=== PATIENT | female | born 1950 | race Caucasian/White ===

== ENCOUNTER 2017-11-08 09:00 | Emergency (ER) | payer SELFPAY ==
[~2017-11-08] VITALS: Ht 152.4 cm; Wt 61.2 kg
[~2017-11-08 09:00] MED LIST: ENAL10 PO; FLUSAL2505 INH; Flomax0.4 MG PO; Flonase 0.05% N16 GM; HYDR1TAB94 PO; LEVSOD75 PO; Zofran Odt8 MG SL
[2017-11-08 10:40] LABS: BASOPHILS ABSOLUTE AUTO 0.04 K/mm3 (0.00-0.23); BASOPHILS PERCENT AUTO 0 % (0-2); EOSINOPHILS PERCENT AUTO 1 % (0-6); Hematocrit 39.9 % (33.0-51.0); Hemoglobin 13.4 g/dL (11.5-16.0); IMMATURE GRAN ABSOLUTE AUTO 0.04 K/mm3 (0.00-0.10); IMMATURE GRAN PERCENT AUTO 0 % (0-1); LYMPHOCYTES ABSOLUTE AUTO 1.47 K/mm3 (0.84-5.20); LYMPHOCYTES PERCENT AUTO 13 % (21-46); MONOCYTES ABSOLUTE AUTO 0.69 K/mm3 (0.16-1.47); MONOCYTES PERCENT AUTO 6 % (4-13); Mean Corpuscular HGB 29.1 pg (26.0-34.0); Mean Corpuscular HGB Conc 33.6 g/dL (31.5-36.5); Mean Corpuscular Volume 87 fL (80-100); Mean Platelet Volume 9.3 fL (9.1-12.4); NEUTROPHILS PERCENT AUTO 79 % (41-73); Platelet Count 292 K/mm3 (150-400); RDW Coefficient Variation 12.4 % (11.7-14.2); RDW Standard Deviation 39.3 fL (35.1-46.3); White Blood Cell Count 11.24 K/mm3 (4.00-11.30)
[2017-11-08 10:58] LABS: Alanine Aminotransfer (ALT/SGP 32 U/L (12-78); Albumin, Blood 3.6 g/dL (3.4-5.0); Albumin/Globulin Ratio 0.9 (0.8-1.8); Alk Phos 77 U/L (50-136); Anion Gap 7 mmol/L (6-16); Aspartate Aminotrans (AST/SGOT 24 U/L (12-37); Bilirubin, Total 0.9 mg/dL (0.1-1.0); Blood Urea Nitrogen 10 mg/dL (8-24); Bun/Creatinine Ratio 15.9 (12.0-20.0); CO2, Blood 25 mmol/L (21-32); Calcium, Blood 8.8 mg/dL (8.5-10.1); Chloride, Blood 106 mmol/L (98-108); Creatinine, Blood 0.63 mg/dL (0.40-1.00); Globulin, Blood 4.1 g/dL (2.2-4.0); Glomerular Filtration Rate >60 (60-); Glucose, Blood 112 mg/dL (70-99); Potassium, Blood 3.5 mmol/L (3.5-5.5); Sodium, Blood 138 mmol/L (136-145); Total Protein, Blood 7.7 g/dL (6.4-8.2)
== END 2017-11-08 12:54 | disposition home or self-care (01) ==
LOC: ER 09:00
PROVIDERS: Emergency Medicine
DX: K52.9 Noninfective gastroenteritis and colitis, unspecified (principal); Z88.5 Allergy status to narcotic agent; Z88.8 Allergy status to other drugs, medicaments and biological substances; Z79.899 Other long term (current) drug therapy; I10 Essential (primary) hypertension; J45.909 Unspecified asthma, uncomplicated
CPT/HCPCS: 36415; 74177; 80053; 83690; 85025; 93005; 93010; 96361; 96374; 99284; J2405; J7030; Q9967

== ENCOUNTER 2022-06-15 18:32 | Emergency (ER) | payer OTHER ==
[~2022-06-15] VITALS: Ht 152.4 cm; Wt 63.5 kg
[2022-06-15 19:15] LABS: BASOPHILS ABSOLUTE AUTO 0.07 K/mm3 (0.00-0.23); BASOPHILS PERCENT AUTO 0 % (0-2); EOSINOPHILS ABSOLUTE AUTO 0.21 K/mm3 (0.00-0.68); EOSINOPHILS PERCENT AUTO 1 % (0-6); Hematocrit 40.4 % (33.0-51.0); Hemoglobin 13.7 g/dL (11.5-16.0); IMMATURE GRAN ABSOLUTE AUTO 0.09 K/mm3 (0.00-0.10); IMMATURE GRAN PERCENT AUTO 1 % (0-1); LYMPHOCYTES ABSOLUTE AUTO 1.61 K/mm3 (0.84-5.20); LYMPHOCYTES PERCENT AUTO 9 % (21-46); MONOCYTES ABSOLUTE AUTO 1.13 K/mm3 (0.16-1.47); MONOCYTES PERCENT AUTO 6 % (4-13); Mean Corpuscular HGB 30.1 pg (26.0-34.0); Mean Corpuscular HGB Conc 33.9 g/dL (31.5-36.5); Mean Corpuscular Volume 89 fL (80-100); Mean Platelet Volume 8.9 fL (9.1-12.4); NEUTROPHILS ABSOLUTE AUTO 14.46 K/mm3 (1.96-9.15); NEUTROPHILS PERCENT AUTO 82 % (41-73); Platelet Count 321 K/mm3 (150-400); RDW Coefficient Variation 12.4 % (11.7-14.2); RDW Standard Deviation 40.7 fL (35.1-46.3); Red Blood Cell Count 4.55 M/mm3 (3.80-5.20); White Blood Cell Count 17.57 K/mm3 (4.00-11.30)
[2022-06-15 19:57] LABS: Albumin, Blood 3.8 g/dL (3.4-5.0); Bilirubin, Total 0.3 mg/dL (0.1-1.0); Bun/Creatinine Ratio 19.6 (12.0-20.0); Calcium, Blood 9.3 mg/dL (8.5-10.1); Creatinine, Blood 0.72 mg/dL (0.40-1.00); Globulin, Blood 3.8 g/dL (2.2-4.0); Potassium, Blood 3.5 mmol/L (3.5-5.5); Total Protein, Blood 7.6 g/dL (6.4-8.2)
== END 2022-06-15 20:43 | disposition home or self-care (01) ==
LOC: ER 18:32
PROVIDERS: Emergency Medicine
DX: J45.901 Unspecified asthma with (acute) exacerbation (principal); I10 Essential (primary) hypertension; Z88.5 Allergy status to narcotic agent; Z88.6 Allergy status to analgesic agent; Z79.899 Other long term (current) drug therapy
CPT/HCPCS: 36415; 80053; 85025; 93005; 93010; A9270

== ENCOUNTER 2023-07-17 18:08 | Inpatient (IN) | payer MEDICARE, OTHER ==
[~2023-07-17] VITALS: Ht 152.4 cm; Wt 54.4 kg
[2023-07-17 21:22] LABS: BASOPHILS ABSOLUTE AUTO 0.05 K/mm3 (0.00-0.23); BASOPHILS PERCENT AUTO 0 % (0-2); EOSINOPHILS ABSOLUTE AUTO 0.11 K/mm3 (0.00-0.68); EOSINOPHILS PERCENT AUTO 1 % (0-6); Hematocrit 36.1 % (33.0-51.0); Hemoglobin 12.3 g/dL (11.5-16.0); IMMATURE GRAN ABSOLUTE AUTO 0.08 K/mm3 (0.00-0.10); IMMATURE GRAN PERCENT AUTO 1 % (0-1); LYMPHOCYTES PERCENT AUTO 7 % (21-46); MONOCYTES ABSOLUTE AUTO 0.63 K/mm3 (0.16-1.47); MONOCYTES PERCENT AUTO 5 % (4-13); Mean Corpuscular HGB Conc 34.1 g/dL (31.5-36.5); Mean Corpuscular Volume 88 fL (80-100); Mean Platelet Volume 8.9 fL (9.1-12.4); NEUTROPHILS PERCENT AUTO 86 % (41-73); Platelet Count 261 K/mm3 (150-400); RDW Coefficient Variation 12.3 % (11.7-14.2); RDW Standard Deviation 39.8 fL (35.1-46.3); White Blood Cell Count 13.47 K/mm3 (4.00-11.30)
[2023-07-17 21:38] LABS: International Normalized Ratio 1.03; Prothrombin Time Results 10.8 Sec (9.7-11.5)
[2023-07-17 21:40] LABS: Bun/Creatinine Ratio 18.3 (12.0-20.0); Calcium, Blood 8.7 mg/dL (8.5-10.1); Creatinine, Blood 0.66 mg/dL (0.40-1.00); Potassium, Blood 3.7 mmol/L (3.5-5.5)
[2023-07-18 00:40] VITALS: BP 161/95
[2023-07-18] MEDS ORDERED: FLUT1DIS2 INH (00:42)
--- NOTE | 2023-07-18 01:22 | NUR ---
ARRIVAL PT NEW ADMIT FROM ER. ARRIVED IN NO DISTRESS, A/OX4, ON RA. RLE IS SHORTENED, PEDAL PULSE IS STRONG AND PT REPORTS FULL SENSATION IN EXTREMITY. HASTINGS IN PLACE FROM ER. PT GIVEN PAIN MEDICATION AND ORAL SWABS FOR COMFORT. PLAN FOR SURGERY TOMORROW.
[2023-07-18 05:20] VITALS: BP 132/74
--- NOTE | 2023-07-18 05:34 | NUR ---
SHIFT SUMMARY VSS. RLE REMAINS SHORTENED. SENSATION AND CIRCULATION REMAIN INTACT. PT SLEPT ON AND OFF T/O THE NIGHT. MEDICATED FOR PAIN ONCE. HASTINGS REMAINS PATENT, DARK YELLOW URINE OUTPUT NOTED. IV FLUIDS INFUSING. PT HAS REMAINED NPO T/O THE NIGHT FOR SURGERY TODAY. NO ACUTE EVENTS NOTED
[2023-07-18 06:38] LABS: BASOPHILS ABSOLUTE AUTO 0.04 K/mm3 (0.00-0.23); BASOPHILS PERCENT AUTO 1 % (0-2); EOSINOPHILS ABSOLUTE AUTO 0.02 K/mm3 (0.00-0.68); EOSINOPHILS PERCENT AUTO 0 % (0-6); Hematocrit 33.9 % (33.0-51.0); Hemoglobin 11.4 g/dL (11.5-16.0); IMMATURE GRAN ABSOLUTE AUTO 0.03 K/mm3 (0.00-0.10); IMMATURE GRAN PERCENT AUTO 0 % (0-1); LYMPHOCYTES ABSOLUTE AUTO 1.02 K/mm3 (0.84-5.20); LYMPHOCYTES PERCENT AUTO 12 % (21-46); MONOCYTES ABSOLUTE AUTO 0.59 K/mm3 (0.16-1.47); MONOCYTES PERCENT AUTO 7 % (4-13); Mean Corpuscular HGB Conc 33.6 g/dL (31.5-36.5); Mean Corpuscular Volume 89 fL (80-100); Mean Platelet Volume 9.3 fL (9.1-12.4); NEUTROPHILS ABSOLUTE AUTO 7.18 K/mm3 (1.96-9.15); NEUTROPHILS PERCENT AUTO 81 % (41-73); Platelet Count 241 K/mm3 (150-400); RDW Coefficient Variation 12.5 % (11.7-14.2); RDW Standard Deviation 40.9 fL (35.1-46.3); White Blood Cell Count 8.88 K/mm3 (4.00-11.30)
[2023-07-18 07:21] LABS: Albumin/Globulin Ratio 0.9 (0.8-1.8); Bilirubin, Total 0.7 mg/dL (0.1-1.0); Bun/Creatinine Ratio 21.7 (12.0-20.0); Calcium, Blood 8.3 mg/dL (8.5-10.1); Creatinine, Blood 0.65 mg/dL (0.40-1.00); Globulin, Blood 3.5 g/dL (2.2-4.0); Magnesium, Blood 2.2 mg/dL (1.6-2.4); Potassium, Blood 4.1 mmol/L (3.5-5.5); Thyroid Stimulating Hormone 0.636 uIU/mL (0.360-4.800); Total Protein, Blood 6.5 g/dL (6.4-8.2)
[2023-07-18 07:52] VITALS: BP 132/70
--- NOTE | 2023-07-18 12:03 | NUR ---
SURGERY POST PONED UNTIL TOMORROW DUE TO OR AVAILABILITY. PT GIVEN WATER & BROTH.
--- NOTE | 2023-07-18 14:11 | NUR ---
"Spiritual Care Visit | Pt. requst Pt. is awake in bed when she welcomes my visit. Pt. is pleasant. Facilitate a life review. Pt is unsettled about the delay for her surgery. Listen wiht empathy and a calming presence and seek to normalize the Pt. experience. Pt. displayed evidence of understanding and agreement. Considered matters of kosta and belief. Prayed with Pt. Pt. verbalized gratitude for the spiritual care visit and welcomed this new grad rn to return."
[2023-07-18 15:24] VITALS: BP 134/75
--- NOTE | 2023-07-18 18:06 | NUR ---
SHIFT SUMMARY PT HAS DONE WELL TODAY & KEPT AN UPBEAT ATTITUDE DESPITE SURGERY BEING POST PONED UNTIL TOMORROW. PAIN BETTER CONTROLLED AFTER CHANGES MADE & PT IS VERY HAPPY w/ THAT. PLAN FOR NPO AT [place] & [facility] FOR SURGERY TOMORROW.
[2023-07-18 19:54] VITALS: BP 96/47
[2023-07-18 21:40] VITALS: BP 106/55
[2023-07-19] VITALS (15 sets, daily range): BP systolic 99–184; BP diastolic 45–95
--- NOTE | 2023-07-19 04:58 | NUR ---
SHIFT SUMMARY VSS. PT SLEPT ON AND OFF T/O THE NIGHT. TOLLERATED REPOSITIONING ONCE. MEDICATED FOR PAIN WTIH DILAUDID, OXY, AND TYLENOL. HASTINGS REMAINS IN PLACE, LOW URINE OUTPUT NOTED. IV FLUIDS INFUSING T/O THE NIGHT. PT HAS BEEN NPO SINCE 0000 IN ANTICIPATION FOR SURGERY TODAY.
--- NOTE | 2023-07-19 05:02 | NUR ---
SHIFT SUMMARY POD1 R TKA. SENSATION AND CIRCULATION REMAIN INTACT. DRESSING REMAINS C/D/I. VSS. PT SLEPT ON AND OFF T/O THE NIGHT. AMBULATED TO THE BATHROOM MULTIPLE TIMES TO VOID. TOLLERATING PO INTAKE W/O N/V, NO ACUTE EVENTS NOTED T/O THE NIGHT. PLAN TO WORK WITH PHYSICAL THERAPY AND D/C HOME
--- NOTE | 2023-07-19 14:00 | NUR ---
PT LEFT ROOM TO GO TO O.R.
--- NOTE | 2023-07-19 14:01 | NUR ---
TO DAY SURGERY VIA HOSPITAL BED; IN [facility].
--- NOTE | 2023-07-19 14:13 | NUR ---
PT TO DAY SURGERY WITH 24G IV IN RIGHT HAND
--- NOTE | 2023-07-19 19:38 | NUR ---
SHIFT SUMMARY PT A&OX4, VSS/2L, YOU FLD, HASTINGS PATENT/YELLOW URINE/STAT LOCK ON/OFF FLOOR, BEDREST/REPOSITIONS SELF, PAIN TREATED PER EMAR. S/P R HIP PINNING, 2 AQUACEL CDI. REPORT TO BRIT SERRANO.
[2023-07-20 00:20] VITALS: BP 114/66
--- NOTE | 2023-07-20 04:17 | NUR ---
SHIFT SUMMARY POD 1 R HIP PINNING PT SLEPT T/O NIGHT. DENIES ANY PAIN. TOLERATING PO INTAKE. VSS. HASTINGS DRAINING CLEAR YELLOW URINE. ABLE TO WIGGLE TOES. DRESSING TO R HIP HAS SCANT AMOUNT OF DRAINAGE. NO OTHER CONCERNS AT THIS TIME. CALL LIGHT WITHIN REACH.
[2023-07-20 05:17] VITALS: BP 144/80
[2023-07-20 07:38] VITALS: BP 128/79
[2023-07-20 13:36] VITALS: BP 121/62
--- NOTE | 2023-07-20 16:45 | NUR ---
SHIFT SUMMARY POD1 R HIP PINNING, AQUACEL X2 CDI, BLE ELEVATED AT REST, TEDS/SCDS ON. A&OX4, VSS/RA, YOU PO, AMBULATING SBA FWW/GB, UP TO CHAIR, AWAITING POST-HASTINGS REMOVAL VOID, PAIN MANAGED PER EMAR. PLAN FOR SNF TRANSFER MONDAY. WILL REPORT TO ONCOMING ANGEL SERRANO.
--- NOTE | 2023-07-20 19:57 | NUR ---
TELEPHONE CALL TO HOSPITALIST RE DVT PROPH, NEW ORDER RECEIVED FOR LOVENOX START NOW, DR ZAFAR WILL PUT ORDER IN EMAR. TELEPHONE CALL TO SURGEON DR GRACE AND RECEIVED ORDER FOR ASA 81 MG BID FOR DVT PROPH STARTING TOMORROW.
[2023-07-21] VITALS: BP 100/54
--- NOTE | 2023-07-21 04:13 | NUR ---
SHIFT SUMMARY POD 2 R HIP PINNING PT ABLE TO SLEP T/O NIGHT. PAIN MANAGED PER EMAR. AQAUCEL TO R HIP C/D/I. PT UP TO THE COMMODE. VOIDING. TOLERATING PO INTAKE. PT ON 1L NCTO KEEPS SATS ABOVE 92% WHILE SLEEPING. CONT BIOX ON. NO OTHER CONCERNS AT THIS TIME. PLAN FOR D/C TO SNF TODAY. CALL LIGHT WITHIN REACH.
[2023-07-21 04:52] VITALS: BP 119/66
[2023-07-21 08:06] VITALS: BP 102/57
--- NOTE | 2023-07-21 13:35 | NUR ---
DISCHARGE NOTE: PATIENT WILL BE LEAVING WITH TRANSPORT TO [facility] AROUND 1545 TODAY. THIS NURSE JUST GAVE REPORT TO ILANA SERRANO FROM [facility]. AFTER REPORT LIANA RN HAD NO FURTHER QUESTIONS AT THIS TIME. PAIN IS MANAGED WITH PO PAIN MEDS. SHE IS TOLERATING PO INTAKE AND IS VOIDING/PASSING GAS. PATIENT IS A SBA WITH FWW AND GAIT BELT. PATIENT IS DRESSED AND HAS PERSONAL ITEMS IN THE ROOM GATHERED. HER RIGHT HIP HAS AN AQUACEL THAT IS C/D/I. SHE DENIES NUMBNESS OR TINGLING IN ALL EXTREMITIES. SHE IS LAYING IN THE RECLINER CHAIR WITH CALL LIGHT IN REACH.
--- NOTE | 2023-07-21 15:38 | NUR ---
TRANSPORT HAS ARRIVED TO TAKE THE PATIENT TO [facility]. PATIENT WAS A SBA WITH FWW AND GAIT BELT FROM THE RECLINER TO THE WHEELCHAIR. PATIENT HAS HER PERSONAL BELONGINGS IN HER SUITCASE THAT WAS TAKEN WITH HER. HER HARD PERSCRIPTION WELL AQUACEL DRESSINGS ARE IN THE DISCHARGE FOLDER. PATIENT IS BEING WHEELCHAIRED OUT TO THE TRANSPORTS VAN/CAR TO BE TAKEN TO [facility]. HER IV WAS ALSO TAKEN OUT AND WNL.
== END 2023-07-21 15:40 | DRG 482 ==
LOC: ER 18:08 → SURS 18:09
PROVIDERS: Orthopaedic Surgery; Student in an Organized Health Care Education/Training Program; ADMIT Student in an Organized Health Care Education/Training Program
PROC: 0QS604Z Reposition Right Upper Femur with Internal Fixation Device, Open Approach (ICD-10-PCS; principal; 2023-07-19 16:00)
DX: S72.141A Displaced intertrochanteric fracture of right femur, initial encounter for closed fracture (principal); J45.909 Unspecified asthma, uncomplicated; I10 Essential (primary) hypertension; E30.9 Disorder of puberty, unspecified; S20.212A Contusion of left front wall of thorax, initial encounter; W08.XXXA Fall from other furniture, initial encounter; Z88.5 Allergy status to narcotic agent; Z88.6 Allergy status to analgesic agent; Z79.890 Hormone replacement therapy; Z28.21 Immunization not carried out because of patient refusal
CPT/HCPCS: 36415; 51702; 71101; 73502; 80048; 80053; 82947; 83735; 84443; 85025; 85610; 85730; 86850; 86900; 86901; 93005; 93010; 94640; 94664; 94760; 94762; 96374; 96374-59; 96375; 96376; 96376-59; 97110; 97116; 97162; 99285-25; A9270; C1713; C1769; G0378; J0690; J1100; J1170; J1650; J2405; J2704; J3010; J7120